=== PATIENT | female | born 1985 | race Hispanic/Latino ===

== ENCOUNTER 2017-06-17 06:01 | Day surgery (SDC) | payer MEDICAID ==
[2017-06-17] MEDS ORDERED: XYLOCAINE MPF 2% ONE (07:30)
[2017-06-17] MEDS ORDERED: WATER FOR IRRIG STERILE IR ONE (07:37)
--- NOTE | 2017-06-17 07:41 | Anesthesia Consultation ---
Anesthesia Consult and Med Hx Date of service: 06/17/17 - Airway Anesthetic Teeth Evaluation: Good, Chipped (front bottom tooth, small chip) ROM Head & Neck: Adequate Mental/Hyoid Distance: Adequate Mallampati Class: Class II Intubation Access Assessment: Good - Pulmonary Exam CTA: Yes - Cardiac Exam Cardiac Exam: RRR - Pre-Operative Health Status ASA Pre-Surgery Classification: ASA2 Proposed Anesthetic Plan: MAC - Pulmonary Hx Asthma: Yes - Central Nervous System Hx Psychiatric Problems: Yes (anxiety) - Gastrointestinal Hx Gastroesophageal Reflux Disease: Yes
--- NOTE | 2017-06-17 07:42 | Anesthesia Day of Surgery ---
Anesthesia Day of Surgery - Day of Surgery Patient Examined: Yes Patient H&P Reviewed: Yes Patient is NPO: Yes
[2017-06-17] MEDS ORDERED: DIPRIVAN 10 MG/ML IV ONE ×2 (07:44→07:45)
[2017-06-17] MEDS ORDERED: NACL 0.9% 1000 ML 1,000 ML IV SCH (08:00)
--- NOTE | 2017-06-17 08:19 | Operative Report ---
Operative Report Operative Report: OPERATIVE REPORT - EGD DATE 06/17/17 SURGERY: 1.Upper endoscopy. 2. bx of antrum SURGEON: Malick Green M.D. PRE OP DX: abdominal pain POST OP DX: normal gastric sleeve anatomy, and gastritis TYPE OF ANESTHESIA: MAC. ESTIMATED BLOOD LOSS: None. COMPLICATIONS: None. SPECIMENS REMOVED: antral bx to check for h. pylori FINDINGS: 1.gastritis INDICATIONS:INDICATION FOR PROCEDURE: Patient is a 31-year-old female with a long history of morbid obesity. she has gastric sleeve several years ago, complains of abdominal pain that is persistent despite being on protonix. Today we are looking for any abnormal anatomy or pathology that could explain her symptoms. PROCEDURE DETAILS: After consent was reviewed, patient was taken back to the operating room where patient was placed in the left lateral decubitus position and a bite block was placed in the mouth. After a time-out was called, MAC anesthesia was initiated. I then passed the endoscope into her oropharynx, into her esophagus, visualized the entire esophagus, which was all within normal limits. I then visualized the stomach which was appropriately narrowed consistent with her history of sleeve gastrectomy. There was mild gastritis noted, but no ulcer or masses. A mucosal biopsy was performed and sent to pathology to look for h. pylori. The first portion of the duodenum was seen and there were no abnormalities I could clearly visualize. The scope could not be retroflexed due to the narrow caliber of the gastric lumen. I then desufflated the stomach and removed the endoscope. Patient tolerated procedure well and was transferred to recovery room in good and stable condition.
--- NOTE | 2017-06-17 08:21 | Discharge Summary ---
Providers - Providers Date of discharge: 06/17/17 Attending physician: DAVID MARTELL Hospitalization Condition: Good Procedures: egd Hospital course: pt had uneventful egd to evaluate for abdominal pain Disposition: DC-01 TO HOME OR SELFCARE Core Measure Documentation - Palliative Care Palliative Care/ Comfort Measures: Not Applicable - Core Measures Any of the following diagnoses?: none Exam - Physical Exam Narrative exam: unchanged from pre-op - Constitutional Vitals: Temp Pulse Resp BP Pulse Ox 98 F 71 12 124/78 100 06/17/17 07:27 06/17/17 07:27 06/17/17 07:27 06/17/17 07:27 06/17/17 07:27 Plan Activity: no restrictions Weight Bearing Status: Weight Bear as Tolerated Diet: regular Follow up with: ADRIÁN MCDUFFIE MD [Other] - 7 Days
[2017-06-17 08:32] VITALS: BP 104/73
--- NOTE | 2017-06-17 12:24 | Post Anesthesia Evaluation ---
- Post Anesthesia Evaluation Patient Participated: Yes Airway Patent: Yes Stable Respiratory Function: Yes Nausea/Vomiting: No Temp > 96.8F: Yes Pain Manageable: Yes Adequeate Hydration: Yes Anesthesia Complications: No Block Receding Appropriately: Not Applicable Patient on Ventilator: No
== END 2017-06-17 06:02 | disposition home or self-care (01) ==
LOC: GIO 06:01
PROVIDERS: ATTEND Surgery
DX: K29.50 Unspecified chronic gastritis without bleeding (principal); B96.81 Helicobacter pylori [H. pylori] as the cause of diseases classified elsewhere; K21.9 Gastro-esophageal reflux disease without esophagitis; J45.909 Unspecified asthma, uncomplicated; G43.909 Migraine, unspecified, not intractable, without status migrainosus; E66.01 Morbid (severe) obesity due to excess calories; F32.9 Major depressive disorder, single episode, unspecified; F41.9 Anxiety disorder, unspecified; Z98.51 Tubal ligation status; Z98.890 Other specified postprocedural states; Z98.84 Bariatric surgery status; Z88.0 Allergy status to penicillin; Z88.8 Allergy status to other drugs, medicaments and biological substances
CPT/HCPCS: 43239; 88305; 88342; J2704; J7030